=== PATIENT | female | born 1985 | race Hispanic/Latino ===

== ENCOUNTER → 2016-10-22 | Day surgery (SDC) | payer SELFPAY ==
[~2016-10-22] VITALS: Ht 165.1 cm; Wt 65.8 kg
[~2016-10-22] MED LIST: BACLOFEN10 M1 PO; FERROUS SULFAT325 M3 PO; IBUPROFEN600 M1 PO; ULTRAM50 M1 PO
--- NOTE | 2016-10-22 11:25 | Operative Report ---
Operative/Inv Procedure Report Surgery Date: 10/22/16 Name of Procedure: Liposuction trunk right thigh Pre-Operative Diagnosis: Lipodystrophy trunk right thigh Post-Operative Diagnosis: Same Estimated Blood Loss: scant (200) Surgeon/Fireman: VIK MCCAULEY,JACK Ugalde Anesthesia: general endotracheal tube Operative/Procedure Note Note: The patient was counseled extensively Lopes proceeded the alternatives the risks and expected outcomes was related to her request for surgical intervention Street lipodystrophy of the trunk right thigh. The patient has significant history of the lower abdomen and discussed number of occasions at this area might not contract as much as we would like. She does have skin laxity but is trying to avoid an abdominoplasty. The patient was marked in the standing area and her were shown aneurysm would be treated those that would not. She was then taken to the operating room and placed on the stretcher. Venodyne boots are placed and general endotracheal anesthesia was established intravenous antibiotics were given. She was then put into the prone position and appropriately padded. The trunk and right thigh were prepped and draped in usual sterile fashion. Puncture sites were made to access the area safely. Tumescent fluid was instilled in the usual formula. Roughly 1800 mL was aspirated from the upper and lower back and the right side. Incisions were closed with sutures and group. She was then turned into the supine position and additional 2 L of tumescent fluid was instilled in the anterior lateral abdominal wall. Lamonte 1800 mL of nonbloody fat was aspirated. Incisions were closed with suture and glue. A two-handed technique was used throughout dominant right hand on the instruments. Put in the extended hip position to tighten the abdominal wall as much as possible. Ends dictation
== END ==
LOC: STS 03:19
DX: Z41.1 Encounter for cosmetic surgery (principal); E65 Localized adiposity
CPT/HCPCS: 81025; J0131; J0171; J0690; J1100; J2250; J2405